=== PATIENT | male | born 1930 ===

== ENCOUNTER 2017-08-10 23:20 | Inpatient (IN) | payer MEDICARE ==
[~2017-08-10] VITALS: Ht 188 cm; Wt 90.8 kg
--- NOTE | ~2017-08-10 | EC ---
PATIENT:SANDRA PASCAL DATE OF SERVICE: 08/11/17 SEX: M MEDICAL RECORD: [id number] DATE OF : 30 LOCATION:[address]. [address].212 AGE OF PATIENT: 87 ADMISSION DATE: 08/11/17 REFERRING PHYSICIAN: INTERPRETING PHYSICIAN: WENDY PROCTOR MD ECHOCARDIOGRAM REPORT ECHO CHARGES 4 ECHO COMPLETE Date: CLINICAL DIAGNOSIS: HTN ECHOCARDIOGRAPHIC MEASUREMENTS (adult normal given) AC root (d.<3.7cm) 3.5 cm LV Septum d (<1.2 cm> 1.6 cm Valve Excursion 2.3 cm LV Septum (systole) 2.2 cm Left Atria (s.<4.0cm> 3.3 cm LVPW d(<1.2cm) 1.5 cm RV (d.<2.3cm) 4.4 cm LVPW (sytole) 2.2 cm LV diastole(<5.6CM) 4.6 cm MV E-F(>70mm/sec) cm LV systole 3.1 cm LVOT Diameter 2.1 cm MV exc.(>10mm) 1.8 cm Est.ejection fraction (50-75%) % DOPPLER: LVIT cm/sec A 89.0 cm/sec E 70.0 cm/sec LA cm/sec RVSP 37 mmHg LVOT 99 cm/sec AOP1/2T m/s Asc. Ao 113 cm/sec RVOT 82 cm/sec RA cm/sec PA 108 cm/sec AV Gradient Peak 5.09 mmHg AV Mean 2.79 mmHg AV Area 3.3 cm MV Gradient Peak 5.12 mmHg MV Mean 1.52 mmHg MV Area cm COMMENTS: Service Worker: 2 KATHLEEN JIMENEZ Cylinder Batcher: 4 Dr. Proctor TAPE# PACS Pericardial Effusion N DATE OF SERVICE: PROCEDURE: Transthoracic echocardiogram. FINDINGS: 1. Left ventricle shows left ventricular hypertrophy that is moderate. Inflow characteristics consistent with diastolic dysfunction. The patient has a sigmoid septum. Ejection fraction of 60% to 65%. 2. Aortic valve is normal structurally and functionally. 3. The mitral valve has trace mitral regurgitation, otherwise normal. ECHOCARDIOGRAM REPORT [id number] SANDRA PASCAL 4. The tricuspid valve has mild tricuspid regurgitation. RVSP of 35 mmHg, mildly elevated. 5. Right ventricle is moderately dilated with normal function. 6. Right atrium is mildly dilated. 7. The pericardium is normal. 8. The pulmonic valve is normal. CONCLUSION: The patient has evidence of hypertensive heart disease, otherwise grossly normal for age. TRANSINT:[id number] Voice Confirmation ID: [id number] DOCUMENT ID: [id number] WENDY PROCTOR MD at 1426 CC: [id number] DICTATION DATE: 08/16/17 0735 EXTRUSION LINE OPERATOR: 08/16/17 0958 DIS IN 08/13/17 [place] [id number] [place] [id number]
[2017-08-10] MEDS ORDERED: FERROUS SULFAT325 MG PO (23:34)
[2017-08-10] MEDS ORDERED: HYDROCHLOROTH12.5 M1 PO (23:35)
[2017-08-10] MEDS ORDERED: ZOCOR40 MG PO (23:35)
[2017-08-10] MEDS ORDERED: FOLIC ACID1 MG PO (23:35)
[2017-08-10] MEDS ORDERED: MECLIZINE HCL25 MG PO (23:35)
[2017-08-10] MEDS ORDERED: PREDNISONE5 MG PO (23:36)
[2017-08-10] MEDS ORDERED: METHOTREXATE2.5 MG PO (23:36)
[2017-08-10] MEDS ORDERED: HYDROCODONE-APA1 TAB PO (23:36)
[2017-08-11 01:38] VITALS: BP 122/66; BMI 25.7
[2017-08-11 04:00] VITALS: BP 111/63
[2017-08-11 08:34] VITALS: BP 158/64
[2017-08-11 09:15] VITALS: Ht 188 cm; Wt 90.8 kg
[2017-08-11 10:27] LABS: CKMB 5.7 U/L (0.0-3.6); CREATINE KINASE 522 UL (21-232)
[2017-08-11 10:42] LABS: TROPONIN-I 1.593 ng/mL (0.000-0.060)
[2017-08-11 11:52] VITALS: BP 111/44
[2017-08-11 14:16] LABS: ALBUMIN 3.8 g/dL (3.4-5.0); ANION GAP 20.1 mmol/L (8-16); BILIRUBIN - TOTAL 1.06 mg/dL (0.2-1.3); CARBON DIOXIDE 21.2 mmol/L (21.0-32.0); CREATININE - SERUM 1.5 mg/dL (0.6-1.3); MAGNESIUM - SERUM 2.2 mg/dL (1.8-2.4); POTASSIUM - SERUM 4.3 mmol/L (3.5-5.1); PROTEIN - SERUM 7.1 g/dL (6.4-8.2)
[2017-08-11 15:05] LABS: BASOPHILS 0.1 % (0-2); EOSINOPHILS 1.2 % (0-7); HEMATOCRIT 34.5 % (42.0-54.0); IMMATURE GRANULOCYTES 0.3 % (0-5); LYMPHOCYTES 18.2 % (15-50); MCH 37.3 pg (26.0-34.0); MCHC 34.8 g/dL (31.0-37.0); MCV 107.1 fL (80.0-100.0); MEAN PLATELET VOLUME 11.8 fL (7.4-10.4); MONOCYTES 5.9 % (2-11); NEUTROPHILS 74.3 % (40-80); PLATELET COUNT 209 10x3/uL (130-400); RBC 3.22 10x6/uL (4.20-6.10); RDW 17.3 % (11.5-14.5); WBC 7.6 10x3/uL (4.8-10.8)
[2017-08-11 16:13] LABS: CKMB 8.3 U/L (0.0-3.6); CREATINE KINASE 487 UL (21-232)
[2017-08-11 16:17] VITALS: BP 138/57
[2017-08-11 16:20] LABS: TROPONIN-I 2.476 ng/mL (0.000-0.060)
[2017-08-11 19:09] LABS: CKMB 9.2 U/L (0.0-3.6); CREATINE KINASE 422 UL (21-232); TROPONIN-I 2.495 ng/mL (0.000-0.060)
[2017-08-11 20:00] VITALS: BP 150/66
[2017-08-11 22:36] LABS: CKMB 7.5 U/L (0.0-3.6); CREATINE KINASE 391 UL (21-232)
[2017-08-11 22:44] LABS: TROPONIN-I 2.596 ng/mL (0.000-0.060)
[2017-08-12] VITALS: BP 120/51
[2017-08-12 03:58] LABS: BASOPHILS 0.1 % (0-2); EOSINOPHILS 1.2 % (0-7); HEMATOCRIT 35.2 % (42.0-54.0); HEMOGLOBIN 12.2 g/dL (13.5-17.5); IMMATURE GRANULOCYTES 0.7 % (0-5); LYMPHOCYTES 22.8 % (15-50); MCH 37.1 pg (26.0-34.0); MCHC 34.7 g/dL (31.0-37.0); MEAN PLATELET VOLUME 11.1 fL (7.4-10.4); MONOCYTES 7.4 % (2-11); NEUTROPHILS 67.8 % (40-80); PLATELET COUNT 189 10x3/uL (130-400); RBC 3.29 10x6/uL (4.20-6.10); WBC 7.5 10x3/uL (4.8-10.8)
[2017-08-12 04:00] VITALS: BP 130/58
[2017-08-12 04:23] LABS: ANION GAP 14.9 mmol/L (8-16); CARBON DIOXIDE 23.8 mmol/L (21.0-32.0); CREATININE - SERUM 1.4 mg/dL (0.6-1.3); POTASSIUM - SERUM 3.7 mmol/L (3.5-5.1)
[2017-08-12 06:40] LABS: CKMB 6.4 U/L (0.0-3.6); CREATINE KINASE 348 UL (21-232); TROPONIN-I 2.136 ng/mL (0.000-0.060)
[2017-08-12 08:09] LABS: APPEARANCE CLEAR (CLEAR); BILIRUBIN NEGATIVE (NEGATIVE); COLOR YELLOW (YELLOW); GLUCOSE NEGATIVE (NEGATIVE); KETONE NEGATIVE (NEGATIVE); NITRITE NEGATIVE (NEGATIVE); PROTEIN NEGATIVE (NEGATIVE); UROBILINOGEN NORMAL (NORMAL)
[2017-08-12 08:10] LABS: BACTERIA FEW /hpf (NONE SEEN); EPITHELIAL CELLS RARE /hpf (0-5); RED CELLS - URINE 0-5 /hpf (0-5)
[2017-08-12 10:15] LABS: CKMB 5.6 U/L (0.0-3.6); CREATINE KINASE 281 UL (21-232)
[2017-08-12 10:17] LABS: TROPONIN-I 1.887 ng/mL (0.000-0.060)
[2017-08-12 11:33] VITALS: BP 117/58
[2017-08-12 16:36] VITALS: BP 116/51
[2017-08-13 03:33] VITALS: BP 126/57
[2017-08-13 05:28] LABS: BASOPHILS 0.3 % (0-2); EOSINOPHILS 1.9 % (0-7); HEMATOCRIT 36.6 % (42.0-54.0); HEMOGLOBIN 12.3 g/dL (13.5-17.5); IMMATURE GRANULOCYTES 0.7 % (0-5); LYMPHOCYTES 24.8 % (15-50); MCH 36.9 pg (26.0-34.0); MCHC 33.6 g/dL (31.0-37.0); MONOCYTES 8.3 % (2-11); PLATELET COUNT 185 10x3/uL (130-400); RBC 3.33 10x6/uL (4.20-6.10); RDW 17.3 % (11.5-14.5); WBC 7.5 10x3/uL (4.8-10.8)
[2017-08-13 05:34] LABS: MCV 109.9 fL (80.0-100.0)
[2017-08-13 05:48] LABS: ANION GAP 18.1 mmol/L (8-16); CALCIUM 8.6 mg/dL (8.5-10.1); CARBON DIOXIDE 22.7 mmol/L (21.0-32.0); CREATININE - SERUM 1.5 mg/dL (0.6-1.3); POTASSIUM - SERUM 3.8 mmol/L (3.5-5.1)
[2017-08-13 07:58] VITALS: BP 136/60
[2017-08-13 11:31] VITALS: BP 125/58
[2017-08-13] MEDS ORDERED: HYDROCODONE-APA1 TAB PO (12:01)
== END 2017-08-13 13:14 | disposition home or self-care (01) | DRG 281 ==
LOC: D.OPS 23:20 → OBSVTIME 23:21 → D.M2 23:21 → D.OPS 23:27 → D.M2 08-11 15:15
PROVIDERS: Internal Medicine Cardiovascular Disease; Internal Medicine Nephrology
DX: I21.4 Non-ST elevation (NSTEMI) myocardial infarction (principal); F17.203 Nicotine dependence unspecified, with withdrawal; T68.XXXA Hypothermia, initial encounter; E11.9 Type 2 diabetes mellitus without complications; I25.2 Old myocardial infarction; E78.5 Hyperlipidemia, unspecified; I10 Essential (primary) hypertension